=== PATIENT | female | born 1965 | race Caucasian/White ===

== ENCOUNTER → 2016-06-19 | Outpatient (CLI) | payer BC ==
[~2016-06-19] MED LIST: BIAXIN PO; FLAGYL PO; PRILOSEC20 M1 PO
--- NOTE | ~2016-06-19 | CR172 ---
[facility] A Service of [facility] RADIOLOGY TEXT RESULTS PATIENT: KWADWO DELGADO LOCATION: [facility] : 67 UNIT #: [id number] AGE: [address]: MALGORZATA CAIN SEX: F ORDER DR: [id number] [facility] [address]. [place], [place] [address] [id number] O MR#: [id number] #: [id number] NAME: KWADWO DELGADO. : 1965 SEX: F STUDY DATE/TIME: 06/19/2016 18:18 UNIT: [facility] ROOM: STUDY DESCRIPTION: CR Knee 3 Views Lt Attending Physician: Aman Junior Referring Physician: Aman Junior Ordering Physician: Aman Junior Primary Care Physician: Dorys Long M.D. MEDICAL IMAGING REPORT This report is preliminary unless electronic signature is present EXAMINATION 3 views of the left knee DATE 06/19/2016 HISTORY 51-year-old female with left knee pain and swelling for 2 weeks. No known injury. COMPARISON None. FINDINGS No fracture or joint dislocation or joint effusion is identified. There is mild medial and patellofemoral compartment joint space narrowing but no significant osteophyte formation. No osteolytic or osteoblastic abnormality. IMPRESSION 1. Mild medial and patellofemoral compartment joint space narrowing without significant osteophytosis. 2. No acute findings. Dictated by... Chiara Lou M.D. THIS IS AN ELECTRONICALLY VERIFIED REPORT Chiara Lou M.D. at 06/21/2016 7:04 AM MEHDI/joce TD: 06/20/2016 14:31 JOB #: [id number] [facility] A Service [facility] RADIOLOGY TEXT RESULTS PATIENT: KWADWO DELGADO LOCATION: [facility] : 67 UNIT #: [id number] AGE: [address]: MALGORZATA CAIN SEX: F ORDER DR: MEDICAL IMAGING REPORT Page 1 of 1 COPY
== END | disposition home or self-care (01) ==
LOC: CRAD 17:49
DX: M25.562 Pain in left knee (principal)
CPT/HCPCS: 73562

== ENCOUNTER → 2016-06-25 | Outpatient (CLI) | payer BC ==
--- NOTE | ~2016-06-25 | MY11 ---
[facility] A Service [facility] RADIOLOGY TEXT RESULTS PATIENT: KWADWO DELGADO LOCATION: [facility] : 67 UNIT #: [id number] AGE: [address]: MALGORZATA CAIN SEX: F ORDER DR: [id number] [id number] [facility] [place], [place] [address] [id number] O MR#: [id number] Acc #: [id number] NAME: KWADWO DELGADO. : 1965 SEX: F STUDY DATE/TIME: 06/25/2016 9:55 UNIT: [facility] ROOM: STUDY DESCRIPTION: MY Mammogram Screening Dig Anthony Attending Physician: Aman Junior Referring Physician: Aman Junior Ordering Physician: Aman Junior Primary Care Physician: Dorys Long M.D. MEDICAL IMAGING REPORT This report is preliminary unless electronic signature is present EXAM Bilateral digital screening mammogram with CAD DATE: 06/25/2016 HISTORY 51-year-old female. No personal or family history of breast cancer of current complaints. COMPARISON Bilateral screening mammogram 10/18/2014, 07/28/2013. FINDINGS CC and MLO views were obtained of each breast utilizing digital technique and reviewed with an FDA-approved CAD device. Scattered fibroglandular densities are present bilaterally. No suspicious nodule, architectural distortion or clustered microcalcification is seen. No abnormal skin thickening or nipple retraction. IMPRESSION 1. BIRADS 1. Negative screening mammogram. Routine screening mammogram recommended in year. Patients over the age of 40 are entered into a reminder system with target due date for the next mammogram. A result letter will also be sent to the patient. BIRADS: 1 - negative Dictated by... [facility] A Service [facility] RADIOLOGY TEXT RESULTS PATIENT: KWADWO DELGADO LOCATION: [facility] : 67 UNIT #: [id number] AGE: [address]: MALGORZATA CAIN SEX: F ORDER DR: Chiara Lou M.D. THIS IS AN ELECTRONICALLY VERIFIED REPORT Chiara Lou M.D. at 06/26/2016 7:11 AM Kanchan/paul TD: 06/25/2016 14:31 JOB #: [id number] MEDICAL IMAGING REPORT Page 1 of 1 COPY
== END | disposition home or self-care (01) ==
LOC: CWCC 09:29
DX: Z12.31 Encounter for screening mammogram for malignant neoplasm of breast (principal)
CPT/HCPCS: G0202